=== PATIENT | male | born 1985 | race Caucasian/White ===

== ENCOUNTER → 2017-05-06 | Outpatient (CLI) | payer OTHER ==
[~2017-05-06] MED LIST: CEFD1CAP14 PO; CYCL5TAB PO; DIVA250T4 PO; GADAVIST IV PRN; IBUP-103 PO
--- NOTE | 2017-05-06 11:19 | DIAGNOSTIC IMAGING REPORT ---
MRI OF THE BRAIN COMBO INTERNAL AUDITORY CANAL PROTOCOL CLINICAL HISTORY: Exertional headache. Dizziness. Occasional tinnitus. COMPARISON STUDY: CT scan of the paranasal sinuses dated 08/15/2014. TECHNIQUE: MRI of the brain was performed utilizing various T1 and T2-weighted sequences in the axial, sagittal, and coronal planes. Contrast-enhanced sequences were acquired following the administration of 10.5 cc of Gadavist. Additional high-resolution imaging was performed through the skull base both pre and postcontrast for assessment of the internal auditory canals. FINDINGS: Brain parenchyma: The brain parenchyma is normal in appearance. There is no hemorrhage or mass effect. There is no restricted diffusion to suggest acute ischemia. No enhancing mass lesion is identified on the postcontrast images. Cody-white matter differentiation is preserved. No extra-axial fluid collection is seen. The cerebellar tonsils are normal in configuration. Ventricles, sulci, and cisterns: Normal in configuration. Internal auditory canals: There is no mass lesion identified in the cerebellopontine angle bilaterally. No mass or abnormal enhancement is seen along the course of the internal auditory canals. The middle ear structures are normal as imaged. Pituitary and sella: Unremarkable. Intracranial vasculature: Normal flow voids are maintained at the skull base. Orbits: The bony orbits are grossly intact. Orbital contents are normal in appearance. Sinuses and mastoids: Clear. Calvarium: Unremarkable. Cervical cord: Partially visualized cervical spinal cord is normal in morphology and signal intensity. IMPRESSION: 1. No acute intracranial abnormality. 2. Unremarkable MRI assessment of the internal auditory canals. Electronically signed by: Minor Lyons M.D. 05/06/2017 11:18 AM Dictated Date/Time: 05/06/2017 11:13 AM
== END | disposition home or self-care (01) ==
LOC: C.MRI 09:53
PROVIDERS: ATTEND Physician Assistant
DX: R42 Dizziness and giddiness (principal); G44.84 Primary exertional headache; R51 Headache

== ENCOUNTER 2017-07-22 22:34 | Emergency (ER) | payer OTHER ==
[~2017-07-22] VITALS: Ht 190.5 cm; Wt 108.5 kg
[2017-07-22 22:39] VITALS: Ht 190.5 cm; Wt 108.5 kg
[2017-07-22] MEDS ORDERED: IBUP-103 PO (22:51)
[2017-07-22] MEDS ORDERED: DIVA250T4 PO (22:51)
[2017-07-22] MEDS ORDERED: CYCL5TAB PO (22:51)
[2017-07-22] MEDS ORDERED: CEFDINIR 300 MG CAP PO STA (23:48)
[2017-07-22] MEDS ORDERED: CEFD1CAP14 PO (23:55)
[2017-07-23 00:10] VITALS: BP 130/88; PULSE 80; TEMP 36.8; O2SAT 98
--- NOTE | 2017-07-23 04:32 | EMERGENCY ROOM VISIT NOTE ---
History First contact with patient: 23:31 Chief Complaint: EAR PAIN Stated Complaint: RT EAR PAIN AND PRESSURE, HEADACHE,CAN'T CLOSE JAW History of Present Illness The patient is a 31 year old male who presents to the Emergency Room with complaints of right ear pain and discomfort for the past week and jaw pain. Patient states he has a history of TMJ but this feels different. Patient denies dental pain, sore throat, abdominal pain, chest pain, dyspnea, cough. Patient states he's had some congestion and some sinus discomfort to the right side. No recent antibiotics. Review of Systems See HPI for pertinent positives & negatives. A total of 10 systems reviewed and were otherwise negative. Past Medical/Surgical History TMJ Social History Smoking Status: Current Every Day Smoker Drug Use: none Occupation Status: [employer] student Current/Historical Medications Scheduled Cefdinir (Omnicef), 300 MG PO Q12H Divalproex Sodium (Depakote Delay Rel), 250 MG PO DAILY Scheduled PRN Cyclobenzaprine Hcl (Flexeril), 5-10 MG PO TID PRN for Ibuprofen Tab (Advil), 600 MG PO Q6H PRN for Physical Exam Vital Signs Date Time Temp Pulse Resp B/P (MAP) Pulse Ox O2 Delivery O2 Flow Rate FiO2 07/23/17 00:10 36.8 80 20 130/88 98 07/22/17 22:39 36.8 80 20 131/90 97 Room Air Physical Exam VITALS: Vitals are noted on the nurse's note and reviewed by myself. Vital signs stable. GENERAL: Pleasant male, in no acute distress, nondiaphoretic, well-developed well-nourished. SKIN: The skin was without rashes, erythema, edema, or bruising. There is no tenting of the skin. Capillary reflex less than 2 seconds. HEAD: Normocephalic atraumatic. EARS: Right tympanic membrane bulging consistent with otitis media with right ear canal erythematous and fluid present left External auditory canals clear, tympanic membranes pearly juan without erythema or effusion . No mastoid tenderness bilaterally. EYES: Pupils equal round and reactive to light and accommodation. Conjunctivae without injection, sclerae without icterus. Extraocular movements intact. NOSE: Patent, turbinates without inflammation or discharge. right maxillary sinus tenderness. MOUTH: Mucous membranes moist. Pharynx without erythema or exudate. Uvula midline. Airway patent. Tongue does not deviate. Dental exam: No signs of dental abscess or Marco angina NECK: Supple without nuchal rigidity. No lymphadenopathy. No thyromegaly. Cervical spine is nontender. No JVD. HEART: Regular rate and rhythm without murmurs gallops or rubs. LUNGS: Clear to auscultation bilaterally without wheezes, rales or rhonchi. No dullness to percussion. No retractions or accessory muscle use. MUSCULOSKELETAL: No muscle atrophy, erythema, or edema noted. NEURO: Patient was alert and oriented to person place and time. Normal sensation to light and sharp touch. No focal neurological deficits. Medical Decision & Procedures Medications Administered Medications (Trade) Dose Ordered Sig/Lexy Route Start Time Stop Time Status Last Admin Dose Admin Cefdinir (Omnicef Cap) 300 mg ONE STAT PO 07/22/17 23:48 07/22/17 23:50 DC 07/23/17 00:09 300 MG ED Course Prior records/ancillary studies reviewed. Triage Nursing notes reviewed. The patient's history was concerning for right ear pain and jaw pain Differential diagnosis: Etiologies such as otitis, TMJ, Marco angina, parotitis, dental infection, salivary stone viral syndrome, tonsillitis, streptococcal pharyngitis, mononucleosis, peritonsillar abscess, retropharyngeal abscess, pneumonia, influenza, as well as others were entertained. ER treatment provided: Omnicef On reassessment the patient felt better. Diagnostics interpreted by me: Deferred This appears to be consistent with right otitis media. Patient had symptoms for a week. He was started on antibiotics. No history of anaphylaxis with penicillins. Patient was advised to take antibiotics as directed and to follow- up with family care in a few days or here in the ER sooner for high fevers, neck stiffness, severe pain, worsening signs or symptoms or as needed. Patient had no signs of airway compromise or Marco angina or abscess. By the evaluation outlined above emergent etiologies such as peritonsillar abscess, retropharyngeal abscess, pneumonia, meningitis, sepsis, bacteremia, as well as others were deemed relatively unlikely. The pt informed about the findings as listed above. All questions were answered and pleased with the treatment. Return instructions were outlined and the patient was discharged in stable condition. Outpatient prescription management: Omnicef Referral: The patient was referred back to their primary care physician for follow-up in 2 to 3 days for a recheck of the current condition. Medical Decision As above Medication Reconcilliation Current Medication List: was personally reviewed by me Blood Pressure Screening Patient's blood pressure: Normal blood pressure Impression Primary Impression: Right acute otitis media Departure Information Dispostion Home / Self-Care Condition GOOD Prescriptions Cefdinir (Omnicef) 300 Mg Cap 300 MG PO Q12H for 10 Days, #20 CAP Prov: Diane Melendez .ELIOT 07/22/17 Forms WORK / SCHOOL INSTRUCTIONS, HOME CARE DOCUMENTATION FORM, IMPORTANT VISIT INFORMATION Patient Instructions My [facility], ED Otitis Media Acute Adult Additional Instructions Omnicef 300 m tablet twice a day for 10 days.All antibiotics can cause diarrhea. If this occurs and you feel worse or it does not resolve in 1-2 days follow up with your doctor or return to the Emergency Department as this could be signs of serious underlying problems. Any medication can cause an allergic reaction, stop the pills immediately and return to the ER for rash, hives, breathing difficulties, or swelling. Acetaminophen(Tylenol) may be used for fever or pain. Use 1000mg every six hours as needed. Avoid using more than 3000mg in a 24 hour period. (AND/OR) Ibuprofen(Motrin, Advil) may be used for fever or pain. Use 600mg every six hours as needed. Take with food. Avoid using more than 2400mg in a 24 hour period. Do not use 2400mg per day for more than three consecutive days without physician direction. Prolonged inappropriate use can lead to stomach upset or ulcers. Afrin nasal spray: 2-3 sprays to each nostril twice daily as needed for congestion. Do not use for more than 3-4 days because it can lead to worsening rebound congestion. Pseudoephedrine(Sudaphed): 30-60mg every 6 hours as needed for nasal congestion. Do not take this with other stimulant products or supplements. Rest and drink plenty of fluids. Controlling your fever with Tylenol and Ibuprofen as above will make you feel better. Wash your hands after nose blowing, sneezing, or coughing. Most germs are spread through contact, therefore improper hygiene may result in your close contacts and loved ones becoming ill just like you. Continue current medications. Return to the ER for severe headache, neck stiffness, chest pain, difficulty breathing, fevers, vomiting, worsening of your condition, or as needed. Follow up with your primary physician this week for a recheck of your current condition.
== END 2017-07-23 00:12 | disposition home or self-care (01) ==
LOC: C.EDB 22:35 → C.EDC 07-23 00:12
DX: H66.91 Otitis media, unspecified, right ear (principal); F17.200 Nicotine dependence, unspecified, uncomplicated